=== PATIENT | female | born 1975 | race Caucasian/White ===

== ENCOUNTER 2017-05-04 12:22 | Emergency (ER) | payer OTHER ==
[2017-05-04 12:42] VITALS: BP 131/86; PULSE 82; TEMP 98.7; O2SAT 98; BMI 36.2
[2017-05-04 12:45] VITALS: RESP 20
--- NOTE | 2017-05-04 14:08 | C.PDOC ---
Time Seen by Provider: 05/04/17 13:05 Chief Complaint (Nursing): Abnormal Skin Integrity Past Medical History Vital Signs: Last Vital Signs Temp 98.7 F 05/04/17 12:44 Pulse 82 05/04/17 12:44 Resp 20 05/04/17 12:44 BP 131/86 05/04/17 12:44 Pulse Ox 98 05/04/17 12:44 - Medical History PMH: Migraine Family History: States: Unknown Family Hx - Social History Hx Tobacco Use: No Hx Alcohol Use: No Hx Substance Use: No - Immunization History Hx Tetanus Toxoid Vaccination: No Hx Influenza Vaccination: No Hx Pneumococcal Vaccination: No ED Course And Treatment O2 Sat by Pulse Oximetry: 98 Disposition - Disposition Referrals: [facility] at [facility] [Outside] Disposition: HOME/ ROUTINE Disposition Time: 14:05 Condition: STABLE Prescriptions: Acetaminophen [Tylenol 325mg tab] 2 tab PO Q4H #30 tab - Clinical Impression Clinical Impression: Localized superficial mass
== END 2017-05-04 14:54 | disposition home or self-care (01) ==
LOC: C.ER 12:22
DX: R22.32 Localized swelling, mass and lump, left upper limb (principal)

== ENCOUNTER 2017-07-12 08:15 | Day surgery (SDC) | payer OTHER ==
[2017-07-07 14:15] VITALS: BMI 41.1
[2017-07-12] MEDS ORDERED: Bupivacaine-Epi 0.25%-1:200,000 PF Inj ONE (09:23)
[2017-07-12] MEDS ORDERED: Lidocaine 1% Inj (20ml) ONE (09:23)
[2017-07-12] MEDS ORDERED: ceFAZolin IV 1 gm in Dextrose 0 GM/0 ML BAG IVPB ONE (09:23)
[2017-07-12] MEDS ORDERED: Propofol 10 mg/ml Inj (20 ML) ONE (10:08)
[2017-07-12] MEDS ORDERED: Midazolam 2 MG/2 ML VIAL ONE (10:08)
[2017-07-12] MEDS ORDERED: ceFAZolin IV 2 gm in Dextrose 1 GM/50 ML BAG IVPB ONE (10:10)
[2017-07-12] MEDS ORDERED: HYDROmorphone 0.5 mg/0.5 ml ISec IVP PRN (11:11)
[2017-07-12] MEDS ORDERED: Oxycodone/Acetaminophen 5/325 mg Tab PO PRN (11:14)
--- NOTE | 2017-07-12 11:14 | PCM.SURG1 ---
Surgeon's Initial Post Op Note - Surgeon's Notes Surgeon: Dr. Restrepo Membership Administrator: Dr. Perea PGY-2 Type of Anesthesia: IV Sedation Pre-Operative Diagnosis: Skin lesion of left shoulder Operative Findings: see operative report Post-Operative Diagnosis: see operative report Operation Performed: excision of skin lesion of left shoulder Specimen/Specimens Removed: skin lesion, cyst Estimated Blood Loss: EBL {In ML}: 5 Blood Products Given: N/A Drains Used: No Drains Post-Op Condition: Good Date of Surgery/Procedure: 07/12/17 Time of Surgery/Procedure: 11:13
[2017-07-12 11:31] VITALS: O2SAT 100
[2017-07-12 12:40] VITALS: BP 112/72; PULSE 82; RESP 18; TEMP 97.1
--- NOTE | 2017-07-13 03:27 | OP ---
PROCEDURE DATE: 07/12/2017 PREOPERATIVE DIAGNOSIS: Left shoulder soft tissue lesion. POSTOPERATIVE DIAGNOSIS: Left shoulder soft tissue lesion. PROCEDURE DONE: 1. Wide local excision of left shoulder soft tissue lesion approximately 4 x 3 cm size. 2. Layered closure of the wound complex 4 x 4 cm in size. Surgeon: MD Michael Estrada, PGU 2 ANESTHESIA: Local anesthesia plus sedation. ESTIMATED BLOOD LOSS: Around 10 mL. DRAINS: None. PATHOLOGY: Left shoulder lesion was sent to the pathology. COMPLICATIONS: None. INTRAOPERATIVE FINDINGS: The patient had approximately 4 x 4 cm left shoulder lesion. DESCRIPTION OF PROCEDURE: On intraoperative steps, this 41-year-old female who was diagnosed with left shoulder lesion and the patient was consented for excision, brought to the OR, placed supine on the operating table. After induction of the anesthesia, left shoulder was prepped and draped and an elliptical excision was made approximately 5 x 4 cm size and after incising the skin and subcutaneous tissue, the lesion was completely excised. Now, upper and lower flap was created to close the approximately 4 x 4 cm defect and first subcutaneous suture was done with 2-0 Vicryl, another subcutaneous sutures with 3-0 Vicryl, skin with 4-0 Monocryl and another layer of the skin with 5-0 nylon interrupted suture and dry sterile dressing was applied. The patient tolerated the procedure well. Count of the instruments was correct. There was no apparent complication. Manohar Restrepo MD [facility]ENTER[facility]ari[facility]
== END 2017-07-12 14:00 | disposition home or self-care (01) ==
LOC: C.SDS 08:15
PROVIDERS: ATTEND Surgery Surgical Critical Care
DX: L72.0 Epidermal cyst (principal)
CPT/HCPCS: 11404; 12032; 88305; J0690; J2250; J2704; J3010

== ENCOUNTER 2017-07-21 17:02 | Emergency (ER) | payer OTHER ==
[2017-07-21 17:02] VITALS: BMI 41.1
--- NOTE | 2017-07-21 18:04 | C.PDOC ---
History Of Present Illness 41 y/o female presents to ED with complaints of pain to left shoulder wound for the last 3 days. Pt is s/p cyst removal on 07/[address] Restrepo. Pt states she has been wearing bra strap over wound for the last 5 days. No fever, or discharge. Pt reports new onset of redness and pain to skin. CO PAIN L SHOULDER WOUND X 3 DAYS. S/P CYST REMOVAL 07/12 DR RESTREPO. PS HAS BEEN WEARING BRA STRAP OVER WOUND X 5 DAYS. NO FEVER, DC. NEW ONSET REDNESS, PAIN TO SKIN. EXAM NONTOXIC SKIN POST OP WOUND TOP L SHOULDER. SUTURES INTACT, NO DEHISC. +LOCAL CELLULITIS. NO DC, FLUCTUANCE. LOCAL TEND. NO LYMPHANGITIS Chief Complaint (Nursing): Wound Check History Per: Patient History/Exam Limitations: no limitations Onset/Duration Of Symptoms: Days Ago (3) Current Symptoms Are (Timing): Still Present Location Of Injury: Left: Shoulder Quality Of Symptoms: Painful. denies: Swollen, Draining Recent travel outside of the [place]: No Additional History Per: Patient Past Medical History Reviewed: Historical Data, Nursing Documentation, Vital Signs Vital Signs: Last Vital Signs Temp 98.9 F 07/21/17 18:11 Pulse 67 07/21/17 17:21 Resp 20 07/21/17 17:21 BP 161/94 H 07/21/17 17:21 Pulse Ox 99 07/21/17 18:11 - Medical History PMH: Anemia, Diverticulitis, Migraine (ADVIL) Denies: Chronic Kidney Disease Family History: States: Unknown Family Hx - Social History Hx Tobacco Use: No Hx Alcohol Use: No Hx Substance Use: No - Immunization History Hx Tetanus Toxoid Vaccination: No Hx Influenza Vaccination: No Hx Pneumococcal Vaccination: No Review Of Systems Except As Marked, All Systems Reviewed And Found Negative. Constitutional: Negative for: Fever, Chills Musculoskeletal: Positive for: Shoulder Pain (left) Neurological: Negative for: Weakness, Numbness Physical Exam - Physical Exam Appears: Non-toxic Skin: Warm, Dry, Other (post op wound to top left shoulder. Sutures intact. No dehiscene. (+) local cellulitis. No discharge, or fluctuance. Local tenderness. No lymphangitis. ) Head: Atraumatic, Normacephalic Extremity: Normal ROM, Tenderness (local tenderness to left shoulder wound), Capillary Refill (<2 sec.), No Deformity, No Swelling Neurological/Psych: Oriented x3, Normal Speech, Normal Motor, Normal Sensation ED Course And Treatment O2 Sat by Pulse Oximetry: 99 (on RA) Pulse Ox Interpretation: Normal Progress Note: Pt was given Bactrim, and Keflex. Reevaluation Time: 18:05 Reassessment Condition: Unchanged (D/W SURG RESIDENT DR BRYANT AWARE OF ER FINDINGS) Disposition Counseled Patient/Family Regarding: Diagnosis, Need For Followup, Rx Given - Disposition Referrals: [facility] [Outside] [facility] [Outside] Disposition: HOME/ ROUTINE Disposition Time: 18:04 Condition: GOOD Additional Instructions: TAKE MOTRIN/TYLENOL DIRECTED FOR PAIN NEEDED. KEEP WOUND COVERED. FOLLOW UP WITH SURGERY SCHEDULED Prescriptions: Cephalexin [cephalexin] 500 mg PO BID #14 cap Sulfamethoxazole/Trimethoprim [Bactrim DS 800 mg-160 mg] 1 tab PO BID #14 tab Instructions: Care For Your Stitches (ED) Forms: [employer] (Citizen Of [place]) Print Language: MONEGASQUE - Clinical Impression Clinical Impression: Postoperative wound cellulitis - Scribe Statement The provider has reviewed the documentation as recorded by the Scribe Elliott Madrigal All medical record entries made by the Scribe were at my direction and personally dictated by me. I have reviewed the chart and agree that the record accurately reflects my personal performance of the history, physical exam, medical decision making, and the department course for this patient. I have also personally directed, reviewed, and agree with the discharge instructions and disposition.
[2017-07-21] MEDS ORDERED: Tmp-Smz 800 mg-160 mg DS Tab PO STA (18:06)
[2017-07-21 18:11] VITALS: TEMP 98.9
[2017-07-21] MEDS ORDERED: Tmp-Smz 800 mg-160 mg DS Tab ONE (18:16)
[2017-07-21 18:22] VITALS: BP 142/78; PULSE 65; RESP 18
[2017-07-21 18:23] VITALS: O2SAT 99
== END 2017-07-21 18:22 | disposition home or self-care (01) ==
LOC: C.ER 17:02
DX: T81.89XA Other complications of procedures, not elsewhere classified, initial encounter (principal); Y83.8 Other surgical procedures as the cause of abnormal reaction of the patient, or of later complication, without mention of misadventure at the time of the procedure; Y92.89 Other specified places as the place of occurrence of the external cause

== ENCOUNTER 2017-09-18 22:48 | Emergency (ER) | payer SELFPAY ==
[2017-09-18 22:48] VITALS: BMI 44.9
[2017-09-18 23:09] VITALS: BP 114/78; TEMP 97.9
--- NOTE | 2017-09-18 23:38 | C.PDOC ---
History Of Present Illness 42 y/o F p/w vaginal bleeding in tonight. Patient states she began having bleeding without clots without any significant pain. Had positive test at clinic 3 days ago. Denies dysuria, dyspnea, vomiting, lightheadedness. Time Seen by Provider: 09/18/17 23:31 Chief Complaint (Nursing): Female Genitourinary Past Medical History Vital Signs: Last Vital Signs Temp 97.9 F 09/18/17 23:05 Pulse 80 09/18/17 23:05 Resp 14 09/18/17 23:05 BP 114/78 09/18/17 23:05 Pulse Ox 97 09/18/17 23:38 - Medical History PMH: Anemia, Diverticulitis, Migraine (ADVIL) Denies: Chronic Kidney Disease Family History: States: Unknown Family Hx - Social History Hx Tobacco Use: No Hx Alcohol Use: No Hx Substance Use: No - Immunization History Hx Tetanus Toxoid Vaccination: No Hx Influenza Vaccination: No Hx Pneumococcal Vaccination: No Review Of Systems Except As Marked, All Systems Reviewed And Found Negative. Constitutional: Negative for: Fever Cardiovascular: Negative for: Chest Pain Physical Exam - Physical Exam Additional Physical Exam Comments: Constitutional: No acute distress. Head: Normocephalic. Atraumatic. Eyes: PERRL. ENT: Moist mucous membranes. Neck: Supple. Cardiovascular: Regular rate. Radial pulse 2+ bilaterally. Chest: No tenderness. Respiratory: Clear to auscultation bilaterally. GI: Soft. Nontender. Back: No CVA tenderness. Musculoskeletal: No tenderness or swelling of extremities. Skin: No rash. Neurologic: Alert, no focal deficit. ED Course And Treatment - Laboratory Results Result Diagrams: 09/18/17 23:50 09/18/17 23:50 O2 Sat by Pulse Oximetry: 97 Medical Decision Making Medical Decision Making: IMPRESSION: Fibroid uterus. Multiple nabothian cysts. No intrauterine gestation, for which short-term followup and correlation with the serum beta hCG is recommended. Repeat beta in 48 hours. Disposition - Disposition Referrals: [facility] at [facility] [Outside] Disposition: HOME/ ROUTINE Disposition Time: 01:40 Condition: STABLE Prescriptions: Nitrofurantoin Macrocrystals [Macrobid] 100 mg PO BID #20 cap Instructions: First Trimester Vaginal Bleed (ED) Forms: [employer] (Grenadian) - Clinical Impression Clinical Impression: Vaginal bleeding in
[2017-09-18 23:54] LABS: RBC URINE 98 /hpf (0-3); URINE BACTERIA RARE (<OCC); URINE BILIRUBIN NEGATIVE (NEGATIVE); URINE BLOOD 3+ (NEGATIVE); URINE COLOR Yellow (YELLOW); URINE GLUCOSE (UA) NORMAL (Normal); URINE KETONE NEGATIVE (NEGATIVE); URINE LEUKOCYTE ESTERASE NEG Leu/uL (Negative); URINE PROTEIN 1+ mg/dL (NEGATIVE); URINE UROBILINOGEN NORMAL mg/dL (0.2-1.0); WBC URINE 2 /hpf (0-5)
[2017-09-18 23:54] LABS: BASO # 0.1 K/uL (0.0-0.2); BASO % 0.8 % (0.0-2.0); EOS # 0.1 K/uL (0.0-0.7); EOS % 1.2 % (0.0-4.0); HEMATOCRIT 40.4 % (34.0-47.0); LYMPH # 2.5 K/uL (1.0-4.3); LYMPH % 29.2 % (20.0-40.0); MEAN CELL VOLUME 91.3 fL (81.0-99.0); MEAN CORPUSCULAR HEMOGLOBIN 31.7 pg (27.0-31.0); MEAN CORPUSCULAR HGB CONC 34.7 g/dL (33.0-37.0); MONO # 0.9 K/uL (0.0-0.8); MONO % 9.8 % (0.0-10.0); RED CELL DISTRIBUTION WIDTH 12.6 % (11.5-14.5); WHITE BLOOD COUNT 8.7 K/uL (4.8-10.8)
[2017-09-19 00:03] LABS: CHLORIDE 101 mmol/L (98-107); POTASSIUM 3.7 mmol/L (3.6-5.2); SODIUM 133 mmol/L (132-148)
[2017-09-19 00:05] LABS: BILIRUBIN,TOTAL 0.6 mg/dL (0.2-1.3); GFR AFRICAN-AMERICAN > 60
[2017-09-19 00:06] LABS: ALB/GLOB RATIO 1.6 (1.0-2.1); ALKALINE PHOSPHATASE 57 U/L (38-126); ALT/SGPT 69 U/L (9-52); AST/SGOT 37 U/L (14-36); BLOOD UREA NITROGEN 11 mg/dL (7-17); CARBON DIOXIDE 19 mmol/L (22-30); GLUCOSE,RANDOM 160 mg/dL (65-105); TOTAL PROTEIN 6.9 g/dL (6.3-8.3)
--- NOTE | 2017-09-19 01:21 | US ---
EXAM: US Pelvis, transabdominal and Transvaginal CLINICAL HISTORY: 42 years old, female; Signs and symptoms; Other: Vag bleed; Patient HX: Vag bleed. Beta 327.41; Additional info: Vag bleed in TECHNIQUE: Real-time transabdominal and transvaginal pelvic ultrasound (complete) with image documentation. Transvaginal imaging was used for better evaluation of the endometrium and adnexa. COMPARISON: No relevant prior studies available. FINDINGS: Uterus/cervix: Increased in size and heterogeneous in echogenicity measuring 11.7 x 5.0 x 7.4 cm. Multiple fibroids are identified. The largest is within the fundus measuring 2.4 cm in greatest dimension. Normal endometrial stripe thickness, measuring 9 mm. The cervix measures 3.9 cm, and is closed. Multiple nabothian cysts are present, the largest measuring 22 mm in greatest dimension. No intrauterine gestation is detected. Right ovary: Unremarkable in echogenicity and size measuring 3.5 x 2.2 x 3.5 cm. No mass. Normal blood flow. Left ovary: Unremarkable in echogenicity and size measuring 2.8 x 2.4 x 2.4 cm. No mass. Normal blood flow. Free fluid: No free fluid. IMPRESSION: Fibroid uterus. Multiple nabothian cysts. No intrauterine gestation, for which short-term followup and correlation with the serum beta hCG is recommended.
[2017-09-19 01:45] VITALS: PULSE 82; RESP 17; O2SAT 99
== END 2017-09-19 01:44 | disposition home or self-care (01) ==
LOC: C.ER 22:48
DX: O46.90 Antepartum hemorrhage, unspecified, unspecified trimester (principal)

== ENCOUNTER 2017-10-15 14:32 | Emergency (ER) | payer OTHER ==
[2017-10-15 14:51] VITALS: BMI 40.6
[2017-10-15 15:38] LABS: BASO % 0.6 % (0.0-2.0); EOS # 0.1 K/uL (0.0-0.7); EOS % 1.3 % (0.0-4.0); HEMATOCRIT 43.7 % (34.0-47.0); LYMPH # 2.4 K/uL (1.0-4.3); LYMPH % 34.2 % (20.0-40.0); MEAN CELL VOLUME 92.8 fL (81.0-99.0); MEAN CORPUSCULAR HEMOGLOBIN 31.4 pg (27.0-31.0); MEAN CORPUSCULAR HGB CONC 33.9 g/dL (33.0-37.0); MEAN PLATELET VOLUME 10.3 fL (7.2-11.7); MONO # 0.7 K/uL (0.0-0.8); MONO % 10.3 % (0.0-10.0); RED CELL DISTRIBUTION WIDTH 13.1 % (11.5-14.5)
[2017-10-15 15:52] LABS: ALB/GLOB RATIO 1.5 (1.0-2.1); ALKALINE PHOSPHATASE 52 U/L (38-126); ALT/SGPT 102 U/L (9-52); AST/SGOT 56 U/L (14-36); BILIRUBIN,TOTAL 0.8 mg/dL (0.2-1.3); BLOOD UREA NITROGEN 10 mg/dL (7-17); CALCIUM 8.6 mg/dl (8.6-10.4); CARBON DIOXIDE 21 mmol/L (22-30); CHLORIDE 102 mmol/L (98-107); GFR AFRICAN-AMERICAN > 60; GLUCOSE,RANDOM 99 mg/dL (65-105); POTASSIUM 3.9 mmol/L (3.6-5.2); SODIUM 134 mmol/L (132-148); TOTAL PROTEIN 7.4 g/dL (6.3-8.3)
[2017-10-15 15:59] LABS: RBC URINE 19 /hpf (0-3); URINE BACTERIA RARE (<OCC); URINE BILIRUBIN NEGATIVE (NEGATIVE); URINE BLOOD 3+ (NEGATIVE); URINE COLOR Yellow (YELLOW); URINE GLUCOSE (UA) 2+ mg/dL (Normal); URINE KETONE NEGATIVE (NEGATIVE); URINE LEUKOCYTE ESTERASE NEG Leu/uL (Negative); URINE PROTEIN NEGATIVE (NEGATIVE); URINE UROBILINOGEN NORMAL mg/dL (0.2-1.0); WBC URINE 6 /hpf (0-5)
--- NOTE | 2017-10-15 16:28 | C.PDOC ---
History Of Present Illness 42 year old female who is who is "about 2 months" presents to the ER with a complaint of vaginal bleeding yesterday. Pt notes she had "a lot" of dark red bleeding last night while in the shower which resolved this morning. H/ o similar episode last month with no repeat bleeding till last night. Denies dysuria, fever, abdominal pain, or active vaginal bleeding. Time Seen by Provider: 10/15/17 15:03 Chief Complaint (Nursing): Female Genitourinary History Per: Patient History/Exam Limitations: no limitations Current Symptoms Are (Timing): Still Present Quality Of Discomfort: Unable To Describe Associated Symptoms: Other (Vaginal bleeding). denies: Nausea, Vomiting, Urinary Symptoms Alleviating Factors: None Recent travel outside of the [place]: No Abnormal Vaginal Bleeding: Yes Past Medical History Reviewed: Historical Data, Nursing Documentation, Vital Signs Vital Signs: Last Vital Signs Temp 98.7 F 10/15/17 17:56 Pulse 66 10/15/17 17:56 Resp 16 10/15/17 17:56 BP 122/79 10/15/17 17:56 Pulse Ox 99 10/15/17 18:19 - Medical History PMH: Anemia, Diverticulitis, Migraine (ADVIL) Surgical History: No Surg Hx Family History: States: Unknown Family Hx - Social History Hx Tobacco Use: No Hx Alcohol Use: No Hx Substance Use: No - Immunization History Hx Tetanus Toxoid Vaccination: No Hx Influenza Vaccination: No Hx Pneumococcal Vaccination: No Review Of Systems Gastrointestinal: Negative for: Abdominal Pain Genitourinary: Positive for: Vaginal Bleeding. Negative for: Dysuria Musculoskeletal: Positive for: Back Pain Physical Exam - Physical Exam Appears: Non-toxic, No Acute Distress Skin: Normal Color, Warm, Dry Head: Atraumatic, Normacephalic Eye(s): bilateral: Normal Inspection, EOMI Nose: Normal Oral Mucosa: Moist Neck: Normal ROM, Supple Chest: Symmetrical, No Tenderness Cardiovascular: Rhythm Regular Respiratory: Normal Breath Sounds, No Rales, No Rhonchi, No Wheezing Gastrointestinal/Abdominal: Soft, No Tenderness Extremity: Normal ROM (x4) Neurological/Psych: Oriented x3, Normal Speech, Other (No focal deficits) ED Course And Treatment - Laboratory Results Result Diagrams: 10/15/17 15:31 10/15/17 15:31 O2 Sat by Pulse Oximetry: 99 (Room air) Pulse Ox Interpretation: Normal Progress Note: Blood work, urinalysis, and pelvic US ordered. Pain medication offered, patient refuses. UA reviewed. WBC 6; no leuk , nitrate, bacteria. Asymptomatic. Pt instructed to get repeat UA in 2 days with Beta HCG. Instructed to return to ER if symptoms persist or worsen. Disposition - Disposition Referrals: [facility] [Outside] Disposition: HOME/ ROUTINE Disposition Time: 17:43 Condition: STABLE Additional Instructions: Follow up with OB in 1-2 days for re-evaluation and repeat labs. Instructions: Threatened Miscarriage (ED) Forms: [employer] (Uzbek) - Clinical Impression Clinical Impression: Vaginal bleeding in - Scribe Statement The provider has reviewed the documentation as recorded by the Scribcorrina Shen All medical record entries made by the Scribe were at my direction and personally dictated by me. I have reviewed the chart and agree that the record accurately reflects my personal performance of the history, physical exam, medical decision making, and the department course for this patient. I have also personally directed, reviewed, and agree with the discharge instructions and disposition.
--- NOTE | 2017-10-15 17:53 | US ---
Indication: Bleeding Comparison: Pelvis/transvaginal ultrasound performed 09/19/17 Technique: Real-time transabdominal pelvic ultrasound was performed. In addition a transvaginal pelvic ultrasound was necessary to better depict pelvic anatomy. Findings: The uterus measures approximately 11.5 x 6.7 x 7.7 cm. Anteverted. Multiple fibroids. For example 2 probable uterine fibroids measuring approximately 1.7 x 1.1 x 1.3 cm in the anterior uterus and 1.5 x 1.2 x 1.4 cm posterior uterus. Cervix length measures approximately 3.2 cm. Nabothian cysts. There is a single intrauterine fetus present. 2 mm yolk sac. The gestational sac measures approximately 0.6 cm. The crown-rump length measures 0.2 cm and is compatible with a gestational age of 5 weeks 5 days. heart motion was not detected. The right ovary measures 2.6 x 1.9 x 2.4 cm. The left ovary measures 2.7 x 2.1 x 2.3 cm. Blood flow was demonstrated to both ovaries. Impression: Single intrauterine with estimated gestational age 5 weeks 5 days by crown-rump length calculation. The heart motion was not detected during this examination. Recommend clinical correlation and continued close follow-up as indicated. 2 probable uterine fibroids.
[2017-10-15 17:57] VITALS: BP 122/79; PULSE 66; RESP 16; TEMP 98.7
[2017-10-15 18:20] VITALS: O2SAT 99
== END 2017-10-15 18:40 | disposition home or self-care (01) ==
LOC: C.ER 14:32
DX: O20.9 Hemorrhage in early pregnancy, unspecified (principal); Z3A.01 Less than 8 weeks gestation of pregnancy

== ENCOUNTER 2017-10-26 16:03 | Emergency (ER) | payer OTHER ==
[2017-10-26 16:03] VITALS: BMI 44.9
== END 2017-10-26 17:31 | disposition left against medical advice (07) ==
LOC: C.ER 16:03
DX: N93.9 Abnormal uterine and vaginal bleeding, unspecified (principal); Z02.9 Encounter for administrative examinations, unspecified

== ENCOUNTER 2017-11-09 15:29 | Emergency (ER) | payer OTHER ==
[2017-11-09 15:29] VITALS: BMI 44.9
[2017-11-09 15:41] VITALS: RESP 18
[2017-11-09 16:41] LABS: RBC URINE 14 /hpf (0-3); URINE BACTERIA RARE (<OCC); URINE BILIRUBIN NEGATIVE (NEGATIVE); URINE BLOOD 3+ (NEGATIVE); URINE COLOR Yellow (YELLOW); URINE GLUCOSE (UA) NORMAL (Normal); URINE KETONE NEGATIVE (NEGATIVE); URINE PROTEIN NEGATIVE (NEGATIVE); URINE UROBILINOGEN NORMAL mg/dL (0.2-1.0); WBC URINE 4 /hpf (0-5)
[2017-11-09 16:43] LABS: URINE LEUKOCYTE ESTERASE TRACE Leu/uL (Negative)
[2017-11-09 17:00] LABS: BASO % 0.5 % (0.0-2.0); EOS # 0.1 K/uL (0.0-0.7); HEMATOCRIT 39.3 % (34.0-47.0); LYMPH # 2.6 K/uL (1.0-4.3); LYMPH % 35.8 % (20.0-40.0); MEAN CELL VOLUME 91.3 fL (81.0-99.0); MEAN CORPUSCULAR HEMOGLOBIN 31.8 pg (27.0-31.0); MEAN CORPUSCULAR HGB CONC 34.8 g/dL (33.0-37.0); MEAN PLATELET VOLUME 9.7 fL (7.2-11.7); MONO # 0.5 K/uL (0.0-0.8); MONO % 7.5 % (0.0-10.0); WHITE BLOOD COUNT 7.2 K/uL (4.8-10.8)
[2017-11-09 17:09] LABS: ALB/GLOB RATIO 1.6 (1.0-2.1); ALKALINE PHOSPHATASE 46 U/L (38-126); ALT/SGPT 88 U/L (9-52); AST/SGOT 46 U/L (14-36); BILIRUBIN,TOTAL 0.5 mg/dL (0.2-1.3); BLOOD UREA NITROGEN 10 mg/dL (7-17); CALCIUM 8.5 mg/dl (8.6-10.4); CARBON DIOXIDE 24 mmol/L (22-30); CHLORIDE 102 mmol/L (98-107); GFR AFRICAN-AMERICAN > 60; GLUCOSE,RANDOM 139 mg/dL (65-105); POTASSIUM 3.9 mmol/L (3.6-5.2); SODIUM 133 mmol/L (132-148); TOTAL PROTEIN 6.5 g/dL (6.3-8.3)
--- NOTE | 2017-11-09 18:28 | US ---
Indication: Pain, bleeding/discharge after possible miscarriage Technique: A real-time transabdominal pelvic ultrasound was performed. In addition, a transvaginal pelvic ultrasound was necessary to better depict pelvic anatomy. Comparison: 1st trimester/ Ob ultrasound performed 10/15/27 Findings: The uterus measures approximately 11.4 x 5.9 x 6.5 cm. Anteverted. Two probable uterine fibroids noted measuring approximately 1.5 x 1.1 x 1.3 cm and 2.0 x 2.1 x 1.9 cm both at the level of the fundus. Heterogeneous endometrium measures approximately 1.2 cm with evidence of vascularity. No evidence of intrauterine gestational sac. Complex heterogeneous material is noted within the endocervical canal. The right ovary measures 3.4 x 2.9 x 3.0 cm and appears unremarkable. The left ovary measures 3.3 x 2.6 x 2.5 cm and contains 0.7 x 0.6 x 0.5 cm echogenic lesion, possibly dermoid. And appears unremarkable. Blood flow is noted to both ovaries. No significant pelvic free fluid identified. Impression: No intrauterine gestational sac identified. Heterogeneous endometrium measures approximately 1.2 cm with evidence of vascularity ; correlate clinically for possibility of retained products of conception. Complex heterogeneous materials noted within the endocervical canal, favored to reflect blood products. Correlate clinically. 0.7 x 0.6 x 0.5 cm echogenic lesion involving the left ovary, possibly dermoid. Two probable uterine fibroids.
--- NOTE | 2017-11-09 20:32 | C.PDOC ---
History Of Present Illness Pt states that she had a miscarriage last month but she is still having suprapubic pain and vaginal bleeding/discharge. Time Seen by Provider: 11/09/17 15:52 Chief Complaint (Nursing): Female Genitourinary History Per: Patient, Family Onset/Duration Of Symptoms: Days (about 1 month) Current Symptoms Are (Timing): Still Present Severity: Moderate Quality Of Discomfort: Unable To Describe Alleviating Factors: None Additional History Per: Prior Records Abnormal Vaginal Bleeding: Yes Past Medical History Reviewed: Historical Data, Nursing Documentation, Vital Signs Vital Signs: Last Vital Signs Temp 98.6 F 11/09/17 19:16 Pulse 67 11/09/17 19:16 Resp 18 11/09/17 19:16 BP 109/73 11/09/17 19:16 Pulse Ox 97 11/09/17 19:16 - Medical History PMH: Anemia, Diverticulitis, Migraine (ADVIL) Family History: States: Unknown Family Hx - Social History Hx Tobacco Use: No Hx Alcohol Use: No Hx Substance Use: No - Immunization History Hx Tetanus Toxoid Vaccination: No Hx Influenza Vaccination: No Hx Pneumococcal Vaccination: No Review Of Systems Except As Marked, All Systems Reviewed And Found Negative. Constitutional: Negative for: Fever, Chills, Weakness Cardiovascular: Negative for: Chest Pain Respiratory: Negative for: Shortness of Breath Gastrointestinal: Negative for: Vomiting Genitourinary: Positive for: Vaginal Discharge, Vaginal Bleeding, Pelvic Pain. Negative for: Dysuria Musculoskeletal: Negative for: Neck Pain, Back Pain Skin: Negative for: Rash Neurological: Negative for: Weakness, Numbness Physical Exam - Physical Exam Appears: Non-toxic, No Acute Distress Skin: Normal Color, Warm, Dry, No Rash Head: Atraumatic, Normacephalic Eye(s): bilateral: Normal Inspection, PERRL, EOMI Oral Mucosa: Moist Neck: Normal ROM, Supple Cardiovascular: Rhythm Regular Respiratory: Normal Breath Sounds, No Accessory Muscle Use Gastrointestinal/Abdominal: Soft, No Tenderness Back: No CVA Tenderness Extremity: Normal ROM Neurological/Psych: Oriented x3, Normal Motor, Normal Sensation ED Course And Treatment - Laboratory Results Result Diagrams: 11/09/17 16:54 11/09/17 16:54 Interpretation Of Abnormal: Beta hcg has decreased. Urine POC: Positive O2 Sat by Pulse Oximetry: 97 Pulse Ox Interpretation: Normal - CT Scan/US Pelvic US Other Rad Studies (CT/US): Read By Radiologist, Radiology Report Reviewed CT/US Interpretation: Impression: No intrauterine gestational sac identified. Heterogeneous endometrium measures approximately 1.2 cm with evidence of vascularity ; correlate clinically for possibility of retained products of conception. Complex heterogeneous materials noted within the endocervical canal , favored to reflect blood products. Correlate clinically. 0.7 x 0.6 x 0.5 cm echogenic lesion involving the left ovary, possibly dermoid. Two probable uterine fibroids. - Physician Consult Information Physician Contacted: Juan Godinez (C Programmer) Outcome Of Conversation: I discussed with her the pt's presentation, lab and US findings. She states that the pt does not require a D&C tonight. She recommended to discharge pt home with outpt f/up and give Cytotec 800mcg x1 as well as Doxycycline 100mg bid for 7 days. Disposition Counseled Patient/Family Regarding: Studies Performed, Diagnosis, Need For Followup, Rx Given - Disposition Referrals: [facility] [Outside] Disposition: HOME/ ROUTINE Disposition Time: 20:34 Condition: STABLE Additional Instructions: Follow up with a Racehorse Trainer this week for further evaluation and treatment. Return to the ER if you develop fever, worsening of symptoms or if you have nay other concerns. Prescriptions: Doxycycline Hyclate 100 mg PO BID #14 capsule Naproxen [Naprosyn] 1 tab PO BID PRN #20 tab PRN Reason: Pain Forms: [employer] (Citizen Of [place]), General Discharge Instructions, Gen Discharge Inst Citizen Of [place] - Clinical Impression Clinical Impression: Incomplete
[2017-11-09 20:53] VITALS: BP 143/90; PULSE 65; TEMP 98.3; O2SAT 100
== END 2017-11-09 20:57 | disposition home or self-care (01) ==
LOC: C.ER 15:29
DX: O03.4 Incomplete spontaneous abortion without complication (principal)
CPT/HCPCS: 76830; 76856; 80053; 81001; 84702; 84703; 85025; 96374; 99285; J1885

== ENCOUNTER 2018-07-02 20:47 | Emergency (ER) | payer SELFPAY ==
[2018-07-02 20:48] VITALS: BMI 44.9
[2018-07-02] MEDS ORDERED: Sodium Chloride 0.9% 1,000 ML IV ONE (21:22)
--- NOTE | 2018-07-02 21:22 | C.PDOC ---
History Of Present Illness 42 year year old female presents to the ED c/o heavy vaginal bleeding with some clots that started on Wednesday. Patient also states having nausea and 2 episodes of vomiting. Patient reports her last period was also very heavy, states she is currently using 7-10 pads a day. Patient denies fever, chills, nausea, vomit, diarrhea, weakness, numbness, dizziness. Time Seen by Provider: 07/02/18 21:21 Chief Complaint (Nursing): Female Genitourinary History Per: Patient History/Exam Limitations: no limitations Onset/Duration Of Symptoms: Days Current Symptoms Are (Timing): Still Present Severity: Mild Quality Of Discomfort: "Pain" Associated Symptoms: denies: Nausea, Vomiting, Diarrhea Recent travel outside of the [place]: No Additional History Per: Patient Abnormal Vaginal Bleeding: Yes Last Menstral Period: 06/28/18 Past Medical History Reviewed: Historical Data, Nursing Documentation, Vital Signs Vital Signs: Last Vital Signs Temp 98.0 F 07/02/18 21:50 Pulse 90 07/02/18 21:50 Resp 18 07/02/18 21:50 BP 140/82 07/02/18 21:50 Pulse Ox 97 07/02/18 21:50 - Medical History PMH: Anemia, Diverticulitis, Migraine (ADVIL) Denies: Chronic Kidney Disease Surgical History: No Surg Hx Family History: States: Unknown Family Hx - Social History Hx Tobacco Use: No Hx Alcohol Use: No Hx Substance Use: No - Immunization History Hx Tetanus Toxoid Vaccination: No Hx Influenza Vaccination: No Hx Pneumococcal Vaccination: No Review Of Systems Constitutional: Negative for: Fever, Chills Cardiovascular: Negative for: Chest Pain, Palpitations Respiratory: Negative for: Shortness of Breath Gastrointestinal: Positive for: Nausea, Vomiting. Negative for: Abdominal Pain Genitourinary: Positive for: Vaginal Bleeding Skin: Negative for: Rash Neurological: Negative for: Weakness, Numbness, Dizziness Physical Exam - Physical Exam Appears: Non-toxic, No Acute Distress Skin: Warm, Dry Head: Normacephalic Eye(s): bilateral: Normal Inspection Oral Mucosa: Moist Neck: Supple Chest: Symmetrical Cardiovascular: Rhythm Regular Respiratory: No Rales, No Rhonchi, No Wheezing Gastrointestinal/Abdominal: Soft, Tenderness (mild epigastric), No Guarding, No Rebound Back: Normal Inspection Extremity: No Tenderness, No Swelling Extremity: Bilateral: Atraumatic, Normal Color And Temperature, Normal ROM Neurological/Psych: Oriented x3, Normal Speech Gait: Steady ED Course And Treatment - Laboratory Results Result Diagrams: 07/02/18 21:32 07/02/18 21:32 O2 Sat by Pulse Oximetry: 98 (ON RA) Pulse Ox Interpretation: Normal Progress Note: Plan: - Labs. - IV fludis. - Zofran 4 mg IVP. - UA Reevaluation Time: 02:06 Reassessment Condition: Improved Disposition Counseled Patient/Family Regarding: Studies Performed, Diagnosis, Need For Followup - Disposition Referrals: [facility] [Outside] [facility] [Outside] Disposition: HOME/ ROUTINE Disposition Time: 21:21 Condition: FAIR Additional Instructions: Por favor regrese en [address] [facility] [place] repetida. Instructions: Threatened Miscarriage (DC), Bleeding With (DC) Forms: [employer] (German) Print Language: MONGOLIAN - Clinical Impression Clinical Impression: Threatened - Scribe Statement The provider has reviewed the documentation as recorded by the Scribe Bowen Levy All medical record entries made by the Scribe were at my direction and personally dictated by me. I have reviewed the chart and agree that the record accurately reflects my personal performance of the history, physical exam, medical decision making, and the department course for this patient. I have also personally directed, reviewed, and agree with the discharge instructions and disposition.
[2018-07-02 21:35] LABS: BASO # 0.1 K/uL (0.0-0.2); BASO % 0.8 % (0.0-2.0); EOS # 0.2 K/uL (0.0-0.7); EOS % 1.2 % (0.0-4.0); HEMOGLOBIN 11.7 g/dL (11.0-16.0); LYMPH # 3.1 K/uL (1.0-4.3); LYMPH % 22.6 % (20.0-40.0); MEAN CELL VOLUME 91.5 fL (81.0-99.0); MEAN CORPUSCULAR HEMOGLOBIN 31.1 pg (27.0-31.0); MEAN PLATELET VOLUME 10.9 fL (7.2-11.7); MONO # 0.8 K/uL (0.0-0.8); MONO % 6.2 % (0.0-10.0); NEUT # 9.4 K/uL (1.8-7.0); NEUT % 69.2 % (50.0-75.0); NRBC % 0.1 % (0.0-2.0); PLATELET COUNT 200 K/uL (130-400); RBC 3.75 Mil/uL (3.80-5.20); RED CELL DISTRIBUTION WIDTH 12.4 % (11.5-14.5); WHITE BLOOD COUNT 13.6 K/uL (4.8-10.8)
[2018-07-02 21:48] LABS: ALB/GLOB RATIO 1.4 (1.0-2.1); ALBUMIN 3.9 g/dL (3.5-5.0); ALT/SGPT 35 U/L (9-52); AST/SGOT 33 U/L (14-36); BLOOD UREA NITROGEN 13 mg/dL (7-17); CALCIUM 9.3 mg/dl (8.6-10.4); GFR AFRICAN-AMERICAN > 60; GFR NON-AFRICAN AMERICAN > 60
[2018-07-02 21:53] LABS: PROTHROMBIN TIME 11.1 SECONDS (9.7-12.2)
[2018-07-02 23:52] VITALS: TEMP 98
[2018-07-03 02:13] VITALS: BP 121/76; PULSE 73; RESP 16; O2SAT 97
--- NOTE | 2018-07-03 13:13 | US ---
Date of service: 07/03/2018 HISTORY: vag bleed, hcg 900 COMPARISON: Comparison is made to the previous study dated 11/09/2017 TECHNIQUE: Transabdominal and endovaginal ultrasound examination of the pelvis was obtained. FINDINGS: UTERUS: Measures 12.7 x 6.8 x 8 cm. The uterus is heterogeneous in echotexture. There is suspicious for intramural fibroid measures 2.3 x 1.9 x 2.5 centimeter. There is also fundal fibroid measures 2.3 x 1.7 x 2.5 centimeter. There is also 1.9 x 1.9 x 1.7 centimeter fibroid. ENDOMETRIUM: There is focal hypervascular thickening in the endometrium may represent retained product of conception. There is a cystic structure at the lower uterine segment without evidence of yolk sac or pole may represent empty gestational sac. The differential consideration includes less likely pseudo gestational sac. CERVIX: No cervical abnormality identified. RIGHT OVARY: Measures 3.2 x 2.4 x 3 cm. No solid mass. Normal flow. LEFT OVARY: Measures 2.4 x 1.7 x 2 cm. No solid mass. Normal flow. Echogenic focus noted at the left adnexa measures 0.6 x 0.6 x 0.8 FREE FLUID: No significant free fluid noted. OTHER FINDINGS: None. IMPRESSION: No evidence of intrauterine live . Cystic structure at lower uterine segment may represent an empty gestational sac. Multiple fibroids. Heterogeneous focal thickening in the endometrium with increased vascularity noted may represent retained product of conception. Correlation with beta HCG level and follow-up exam is recommended. Preliminary report was submitted by [facility].
== END 2018-07-03 02:20 | disposition home or self-care (01) ==
LOC: C.ER 20:47
DX: O20.0 Threatened abortion (principal)
CPT/HCPCS: 76805; 76817; 80053; 84702; 85025; 85610; 85730; 86850; 86900; 96374; 96375; 99285; J2270; J2405; J7030

== ENCOUNTER 2019-02-13 19:05 | Emergency (ER) | payer OTHER ==
[2019-02-13 19:06] VITALS: BMI 44.9
[2019-02-13 19:20] VITALS: RESP 18; O2SAT 100
--- NOTE | 2019-02-13 22:28 | C.PDOC ---
History Of Present Illness 43 year old female presents to the ED for evaluation of pain to the left side of her throat that has been ongoing for around one month. Patient reports experiencing a shooting pain that radiates up to her head when she swallows. She was evaluated by her PMD, who told her that her symptoms are caused by gastric reflux. Patient was prescribed Pepcid by her PMD, which she has been taking without improvement. She presents to the ED for further evaluation. Patient denies fever, chills, ear pain, throat swelling sensation or shortness of breath. Time Seen by Provider: 02/13/19 19:35 Chief Complaint (Nursing): ENT Problem History Per: Patient History/Exam Limitations: None Onset/Duration Of Symptoms: Intermittent Episodes, Other (one month ) Current Symptoms Are (Timing): Still Present Past Medical History Reviewed: Historical Data, Nursing Documentation, Vital Signs Vital Signs: Last Vital Signs Temp 98.8 F 02/13/19 19:16 Pulse 70 02/13/19 19:16 Resp 18 02/13/19 19:16 BP 143/87 02/13/19 19:16 Pulse Ox 100 02/13/19 19:16 - Medical History PMH: Anemia, Diverticulitis, Migraine (ADVIL) Denies: Chronic Kidney Disease Surgical History: No Surg Hx Family History: States: Unknown Family Hx - Social History Hx Tobacco Use: No Hx Alcohol Use: No Hx Substance Use: No - Immunization History Hx Tetanus Toxoid Vaccination: No Hx Influenza Vaccination: No Hx Pneumococcal Vaccination: No Review Of Systems Constitutional: Negative for: Fever, Chills ENT: Positive for: Throat Pain (left-sided ). Negative for: Throat Swelling Respiratory: Negative for: Shortness of Breath Physical Exam - Physical Exam Appears: Non-toxic, No Acute Distress Skin: Normal Color, Warm, Dry Head: Atraumatic, Normacephalic Eye(s): bilateral: Normal Inspection Oral Mucosa: Moist Throat: Normal, No Erythema, No Exudate, No Drooling, No Mass Neck: Normal ROM, Supple, Other (slight anterolateral tenderness. no swelling ) Cardiovascular: Rhythm Regular Respiratory: Normal Breath Sounds, No Rales, No Rhonchi, No Wheezing, Other (speaking in complete sentences) Neurological/Psych: Oriented x3, Normal Speech, Normal Cognition ED Course And Treatment O2 Sat by Pulse Oximetry: 100 (on RA) Pulse Ox Interpretation: Normal - CT Scan/US CT Head Other Rad Studies (CT/US): Read By Radiologist, Radiology Report Reviewed CT/US Interpretation: EXAM: CT Head without Intravenous Contrast. CLINICAL HISTORY: LEFT SIDED HEADACHE. TECHNIQUE: Axial computed tomography images of the head/brain without intravenous contrast. 0.00 mGy-cm. COMPARISON: None provided. FINDINGS: BRAIN. No acute intraparenchymal hemorrhage. No mass lesion. No CT evidence for acute territorial infarct. No midline shift or extra- axial collections. VENTRICLES: No hydrocephalus. ORBITS: The orbits are unremarkable. SINUSES AND MASTOIDS: The paranasal sinuses and mastoid air cells are clear. BONES: No fracture. SOFT TISSUES: Unremarkable. IMPRESSION: No acute intracranial abnormality. CT Neck Other Rad Studies (CT/US): Read By Radiologist, Radiology Report Reviewed CT/US Interpretation: EXAM: CT Neck without Intravenous Contrast. CLINICAL HISTORY: LEFT NECK/THROAT PAIN. TECHNIQUE: Axial computed tomography images of the neck without intravenous contrast. Sagittal and coronal reformatted images were generated. 0.00 mGy-cm. CONTRAST: Without. COMPARISON: None provided. FINDINGS: PHARYNX: Unremarkable appearance of the nasopharynx, oropharyx, and hypopharynx. No pharyngeal mucosal based mass lesions. LARYNX: The larynx is unremarkable. The epiglottis appears normal. RETROPHARYNGEAL SPACE: The retropharyngeal soft tissues appear within normal limits. SALIVARY GLANDS: Unremarkable appearance of the parotid, submandibular, and sublingual glands. LYMPH NODES: No significant lymphadenopathy. Several non-enlarged submental lymph nodes are identified. THYROID: The thyroid gland is unremarkable. No nodule is evident. BONES: No aggressive appearing osseous lesion. No acute osseous abnormality. IMPRESSION: 1. A few nonenlarged submental lymph nodes are noted. 2. Otherwise, unremarkable CT neck without IV contrast. Progress Note: Patient is concerned and anxious about her symptoms, so CT Head and CT neck ordered. On reassessment, patient is resting comfortably, showing no signs of distress and is stable for discharge. Patient is advised to follow up with PMD and ENT within 1-2 days for further evalaution. Advised to return to the ED if symptoms persist or worsen. Disposition - Disposition Referrals: Saravanan Vickers MD [Staff Provider] - Disposition: HOME/ ROUTINE Disposition Time: 22:27 Condition: STABLE Additional Instructions: Follow up with ENT specialist within 1-2 days. Return to ED if feel worse. Instructions: Sore Throat in Adults Forms: [facility] ([place]) Print Language: LUXEMBOURGISH - Clinical Impression Clinical Impression: Throat pain in adult - PA / [employer] / Resident Statement MD/DO has reviewed & agrees with the documentation as recorded. - Scribe Statement The provider has reviewed the documentation as recorded by the Scribe (Dara Madrigal) All medical record entries made by the Scribe were at my direction and personally dictated by me. I have reviewed the chart and agree that the record accurately reflects my personal performance of the history, physical exam, medical decision making, and the department course for this patient. I have also personally directed, reviewed, and agree with the discharge instructions and disposition.
[2019-02-13 22:37] VITALS: BP 140/80; PULSE 65; TEMP 98
--- NOTE | 2019-02-14 09:59 | CT ---
Date of service: 02/13/2019 PROCEDURE: CT HEAD WITHOUT CONTRAST. HISTORY: Left-sided neck pain, radiates to head with swallowing COMPARISON: None available. TECHNIQUE: Axial computed tomography images were obtained through the head/brain without intravenous contrast. Radiation dose: Total exam DLP = 1016.93 mGy-cm. This CT exam was performed using one or more of the following dose reduction techniques: Automated exposure control, adjustment of the mA and/or kV according to patient size, and/or use of iterative reconstruction technique. FINDINGS: HEMORRHAGE: No acute parenchymal, subarachnoid or extra-axial hemorrhage. BRAIN: No mass effect or edema. No atrophy or chronic microvascular ischemic changes. VENTRICLES: No evidence of obstructive hydrocephalus. CALVARIUM: Unremarkable. PARANASAL SINUSES: Unremarkable as visualized. No significant inflammatory changes. MASTOID AIR CELLS: Unremarkable as visualized. No inflammatory changes. OTHER FINDINGS: None. IMPRESSION: No acute intracranial hemorrhage.
--- NOTE | 2019-02-14 13:37 | CT ---
Date of service: 02/13/2019 PROCEDURE: CT NECK WITHOUT CONTRAST HISTORY: Left neck pain, radiates to head with swallowing COMPARISON: No prior study available for comparison. TECHNIQUE: CT of the neck without intravenous contrast. Coronal and sagittal reformats generated. Radiation dose: Total exam DLP = 430.8 mGy-cm. This CT exam was performed using one or more of the following dose reduction techniques: Automated exposure control, adjustment of the mA and/or kV according to patient size, and/or use of iterative reconstruction technique. FINDINGS: NASOPHARYNX: Unremarkable. SUPRAHYOID NECK: Unremarkable oropharynx, oral cavity, parapharyngeal space and retropharyngeal space.. No evidence of peritonsillar fluid collections. INFRAHYOID NECK: Unremarkable larynx, hypopharynx, and supraglottic space. Vocal cords intact. MASS: No large cervical masses or collections. GLANDS: Parotid and submandibular glands unremarkable. Normal size thyroid gland, without nodule. LYMPH NODES: There are multiple relatively small nonspecific level 1 and level 2 lymph nodes the largest in the right jugulodigastric region measuring approximately 12 mm and on the left 8.2 mm though lymph nodes do contain eccentric fatty centers.. The largest left submandibular lymph node measures approximately 10 mm with an eccentric fatty center as well. CERVICAL SPINE: No fracture or focal lesion so far as can be seen. Note that the lower cervical upper thoracic spine partially obscured due to streak and beam hardening artifact. OTHER FINDINGS: None. IMPRESSION: Unremarkable non-contrast enhanced CT of the neck.
== END 2019-02-13 22:37 | disposition home or self-care (01) ==
LOC: C.ER 19:05
DX: R07.0 Pain in throat (principal)